=== PATIENT | male | born 1950 | race Hispanic/Latino ===

== ENCOUNTER 2022-10-29 16:36 | Emergency (ER) | payer MEDICARE ==
[~2022-10-29] VITALS: Ht 162.6 cm; Wt 57.6 kg
[2022-10-29 17:42] VITALS: BP 181/83
[2022-10-29] MEDS ORDERED: LISI5TAB21 PO (17:52)
== END 2022-10-29 18:08 | disposition home or self-care (01) ==
LOC: EDH 16:36
DX: I10 Essential (primary) hypertension (principal)